=== PATIENT | male | born 1985 ===

== ENCOUNTER 2025-06-07 14:31 | Emergency (ER) | payer OTHER ==
[~2025-06-07] VITALS: Ht 190.5 cm; Wt 113.6 kg
[~2025-06-07 14:31] MED LIST: LORazepam 2 MG/ML VIAL ONE
[2025-06-07 15:09] LABS: PLATELET COUNT (AUTO) 289 K/uL (150-450); RED BLOOD CELL COUNT(AUTO) 5.88 MIL/uL (4.50-5.90); RED CELL DISTRIBUTION WIDTH 13.2 % (11.5-14.5); WHITE BLOOD COUNT (AUTO) 7.4 K/uL (4.5-11.0)
[2025-06-07 15:13] LABS: CALCIUM, TOTAL 9.0 mg/dL (8.8-10.5); CREATININE 0.82 mg/dL (0.60-1.30); GLOMERULAR FILTR. RATE CALC > 60 mL/min (>60); GLUCOSE,RANDOM 103 mg/dL (70-110); SODIUM SERUM 131 mmol/L (136-145); UREA NITROGEN, BLOOD 14 mg/dL (7-18)
[2025-06-07 15:20] LABS: ASPARTATE AMINOTRANSFERASE 16.0 U/L (15-37); TOTAL PROTEIN, SERUM 7.6 g/dL (6.4-8.2); TROPONIN I-HIGH SENSITIVITY 10 ng/L (<76)
[2025-06-07] MEDS: LevETIRAcetam 1,000 MG in DEXTROSE 5%-WATER 100 ML IV ONE ×2 (15:41→17:43)
[2025-06-07 15:48] LABS: APPEARANCE,URINE CLEAR (CLEAR); GLUCOSE, URINE (UA) NEGATIVE (NEGATIVE); LEUKOCYTE ESTERASE ,URINE NEGATIVE (NEGATIVE); NITRATE,URINE NEGATIVE (NEGATIVE); OCCULT BLOOD,URINE TRACE (NEGATIVE); SPECIFIC GRAVITIY, URINE 1.022 (1.003-1.030)
[2025-06-07 15:53] LABS: ALCOHOL, URINE DRUG SCREEN NEGATIVE (NEGATIVE); AMPHET/METH SCREEN,URINE NEGATIVE (NEGATIVE); BARBITURATE SCREEN, URINE NEGATIVE (NEGATIVE); CANNABINOID SCREEN,URINE NEGATIVE (NEGATIVE); COCAINE SCREEN,URINE NEGATIVE (NEGATIVE); METHADONE SCREEN, URINE NEGATIVE (NEGATIVE)
[2025-06-07 15:56] VITALS: TEMP 98
[2025-06-07 15:58] LABS: PH,URINE DRUG SCREEN 6.5 (5.0-8.0)
[2025-06-07 16:01] LABS: SQUAMOUS EPITHELIAL CELL,UR Few /LPF (None Seen)
[2025-06-07 17:00] LABS: LACTIC ACID 0.8 mmol/L (0.4-2.0)
[2025-06-07] MEDS ORDERED: LORazepam 2 MG/ML VIAL ONE ×2 (18:22→19:14)
[2025-06-07] MEDS: LORazepam 2 MG/ML VIAL IVP ONE (19:28)
[2025-06-07] MEDS ORDERED: LORazepam 2 MG/ML VIAL IVP PRN (19:30)
[2025-06-07] MEDS: LACOSAMIDE 100 MG in DEXTROSE 5%-WATER 100 ML IV ONE (20:26)
[2025-06-08] MEDS ORDERED: LORazepam 2 MG/ML VIAL ONE (09:59)
[2025-06-08] MEDS ORDERED: LACOSAMIDE 100 MG in DEXTROSE 5%-WATER 100 ML IV ONE (10:00)
[2025-06-08] MEDS ORDERED: LevETIRAcetam 2,000 MG in DEXTROSE 5%-WATER 250 ML IV ONE (10:00)
[2025-06-08] MEDS: LORazepam 2 MG/ML VIAL IVP ONE ×4 (10:02→19:41)
[2025-06-08] MEDS: LACOSAMIDE 100 MG in DEXTROSE 5%-WATER 100 ML IV ONE (10:24)
[2025-06-08] MEDS: LevETIRAcetam 2,000 MG in DEXTROSE 5%-WATER 250 ML IV ONE (10:25)
[2025-06-08] MEDS: LevETIRAcetam 2,000 MG in DEXTROSE 5%-WATER 100 ML IV ONE (16:39)
[2025-06-08 20:30] VITALS: BP 143/74; PULSE 78; RESP 18; O2SAT 97
== END 2025-06-08 21:19 | disposition short-term general hospital (02) ==
LOC: EMS 14:31
DX: R56.9 Unspecified convulsions (principal); R32 Unspecified urinary incontinence; J45.909 Unspecified asthma, uncomplicated
CPT/HCPCS: 99285; 70450; 96365; 96375; 71045; 80048; 80076; 81001; 83605; 83735; 83880; 84484; 85025; 72125; 72128; 72131; 93005; 96376 ×2; 80307; 96367; 96366; 96368; 36415; G0480; J2060 ×2; J7060 ×3; C9254 ×2; J0712 ×2; G0481